=== PATIENT | male | born 1975 | race Caucasian/White ===

== ENCOUNTER → 2023-03-04 | Outpatient (CLI) | payer BC | LOC: PET 12:30 | PROVIDERS: ATTEND Family Medicine | DX: R91.1 Solitary pulmonary nodule (principal) | CPT/HCPCS: 78815; A9552 ==

== ENCOUNTER 2023-08-05 15:20 | Outpatient (CLI) | payer BC | END 2023-08-05 15:21 | disposition home or self-care (01) | LOC: SCSRAD 15:20 | PROVIDERS: ATTEND Physician Assistant | DX: R06.02 Shortness of breath (principal) | CPT/HCPCS: 71046 ==